=== PATIENT | female | born 1975 | race Caucasian/White ===

== ENCOUNTER → 2023-09-17 06:41 | Outpatient (REF) | payer BC, SELFPAY | LOC: PNTC 06:41 | PROVIDERS: ATTENDING PHYSICIAN Obstetrics & Gynecology | DX: O09.529 Supervision of elderly multigravida, unspecified trimester (principal); O09.819 Supervision of pregnancy resulting from assisted reproductive technology, unspecified trimester | CPT/HCPCS: 76816 ==

== ENCOUNTER → 2023-10-15 06:45 | Outpatient (REF) | payer BC, SELFPAY | LOC: PNTC 06:45 | PROVIDERS: ATTENDING PHYSICIAN Obstetrics & Gynecology | DX: O09.529 Supervision of elderly multigravida, unspecified trimester (principal); O09.819 Supervision of pregnancy resulting from assisted reproductive technology, unspecified trimester | CPT/HCPCS: 76816 ==

== ENCOUNTER → 2023-11-12 06:50 | Outpatient (REF) | payer BC, SELFPAY | LOC: PNTC 06:50 | PROVIDERS: ATTENDING PHYSICIAN Obstetrics & Gynecology | DX: O09.529 Supervision of elderly multigravida, unspecified trimester (principal); O09.819 Supervision of pregnancy resulting from assisted reproductive technology, unspecified trimester; O34.10 Maternal care for benign tumor of corpus uteri, unspecified trimester | CPT/HCPCS: 76816 ==

== ENCOUNTER → 2023-11-19 06:43 | Outpatient (REF) | payer BC, SELFPAY | LOC: PNTC 06:43 | PROVIDERS: ATTENDING PHYSICIAN Obstetrics & Gynecology | DX: O09.529 Supervision of elderly multigravida, unspecified trimester (principal); O09.819 Supervision of pregnancy resulting from assisted reproductive technology, unspecified trimester; O34.10 Maternal care for benign tumor of corpus uteri, unspecified trimester | CPT/HCPCS: 59025; 76815 ==

== ENCOUNTER → 2023-11-26 07:18 | Outpatient (REF) | payer BC, SELFPAY | LOC: PNTC 07:18 | PROVIDERS: ATTENDING PHYSICIAN Obstetrics & Gynecology | DX: O09.529 Supervision of elderly multigravida, unspecified trimester (principal); O09.819 Supervision of pregnancy resulting from assisted reproductive technology, unspecified trimester; O34.10 Maternal care for benign tumor of corpus uteri, unspecified trimester | CPT/HCPCS: 59025; 76815 ==

== ENCOUNTER 2023-11-30 09:00 | Observation (INO) | payer BC, SELFPAY ==
[2023-11-30 09:13] VITALS: BP 132/77; BMI 32.0
[2023-11-30 10:01] LABS: Hematocrit 35.3 % (37.0-47.0); Hemoglobin 12.2 g/dL (12.0-16.0); Mean Corp Hgb Conc. 34.6 g/dL (33.0-37.0); Mean Corpuscular Hgb 31.4 pg (27.0-31.0); Mean Platelet Volume 11.9 fL (7.4-10.4); Platelet Count 172 10^3/uL (130-400); Red Blood Cell Count 3.88 10^6/uL (4.20-5.40); Red Cell Dist. Width 13.3 % (11.5-14.5)
[2023-11-30 10:12] LABS: ALT (SGPT) 17 U/L (0-35); AST (SGOT) 23 U/L (14-36); Albumin 3.4 g/dl (3.5-5.0); Alkaline Phosphatase 226 U/L (38-126); Blood Urea Nitrogen 7 mg/dl (7-17); Calcium 9.3 mg/dl (8.4-10.2); Carbon Dioxide 19 mmol/L (22-30); Chloride 110 mmol/L (98-107); Estimated Creatinine Clearance > 125 ml/min; Glucose 95 mg/dl (70-99); Potassium 4.1 mmol/L (3.5-5.1); Sodium 133 mmol/L (135-145); Total Bilirubin 0.2 mg/dl (0.2-1.3); Total Protein 5.9 g/dl (6.3-8.2); eGFR > 60.00
[2023-11-30 10:18] LABS: Urine Albumin Negative (Neg - Trace); Urine Bilirubin Negative (Negative); Urine Character Slightly Cloudy (Clear); Urine Color Yellow; Urine Glucose Negative (Negative); Urine Ketone Negative (Negative); Urine Leukocyte 2+ (Negative); Urine Nitrite Negative (Negative); Urine Occult Blood Negative (Negative); Urine Urobilinogen Negative (Neg - 1+)
[2023-11-30 10:42] LABS: Protein/creatinine Ratio 0.6; Urine Protein 19 mg/dl
[2023-11-30 10:43] LABS: Urine Squamous Cell >30 /LPF (Few)
[2023-11-30 10:45] LABS: Urine Bacteria Many (Negative); Urine Red Blood Cell 0-2 /HPF (0-2); Urine White Cell 40-50 /HPF (0-5)
== END 2023-11-30 11:37 | disposition home or self-care (01) ==
LOC: LDRP 09:00
PROVIDERS: ADMITTING PHYSICIAN Obstetrics & Gynecology
DX: R80.0 Isolated proteinuria (principal); Z3A.35 35 weeks gestation of pregnancy; N97.9 Female infertility, unspecified; O34.13 Maternal care for benign tumor of corpus uteri, third trimester; D25.9 Leiomyoma of uterus, unspecified; R03.0 Elevated blood-pressure reading, without diagnosis of hypertension
CPT/HCPCS: 59025; 80053; 81003; 81015; 82570; 84156; 85027; G0378

== ENCOUNTER → 2023-12-03 07:47 | Outpatient (REF) | payer BC, SELFPAY | LOC: PNTC 07:47 | PROVIDERS: ATTENDING PHYSICIAN Obstetrics & Gynecology | DX: O09.529 Supervision of elderly multigravida, unspecified trimester (principal); O09.819 Supervision of pregnancy resulting from assisted reproductive technology, unspecified trimester | CPT/HCPCS: 59025; 76815 ==

== ENCOUNTER 2023-12-10 08:35 | Observation (INO) | payer BC, SELFPAY ==
[2023-12-10 08:42] VITALS: BP 145/75; BMI 32.0
[2023-12-10 09:03] LABS: % Basophils 0.3 % (0-2); % Eosinophils 0.5 % (0-6); % Immature Granulocytes 1.5 % (0-0.5); % Lymphocytes 14.7 % (20.5-51.1); % Monocytes 7.4 % (1.7-9.3); % Neutrophils 75.6 % (42.2-75.2); Absolute Eosinophils 0.1 10^3/uL (0-0.7); Absolute Immature Granulocytes 0.2 10^3/uL (0-0.05); Absolute Lymphocytes 1.5 10^3/uL (1.2-3.4); Absolute Monocytes 0.8 10^3/uL (0.1-0.6); Absolute Neutrophils 7.7 10^3/uL (1.4-6.5); Hematocrit 36.9 % (37.0-47.0); Hemoglobin 12.6 g/dL (12.0-16.0); Mean Corp Hgb Conc. 34.1 g/dL (33.0-37.0); Mean Corpuscular Hgb 31.3 pg (27.0-31.0); Mean Corpuscular Volume 91.6 fL (81.0-99.0); Mean Platelet Volume 11.8 fL (7.4-10.4); Nucleated Red Blood Cells % 0 %; Platelet Count 162 10^3/uL (130-400); Red Blood Cell Count 4.03 10^6/uL (4.20-5.40); Red Cell Dist. Width 13.2 % (11.5-14.5); White Blood Cell Count 10.2 10^3/uL (4.8-10.8)
[2023-12-10 09:11] LABS: ALT (SGPT) 20 U/L (0-35); AST (SGOT) 26 U/L (14-36); Albumin 3.3 g/dl (3.5-5.0); Alkaline Phosphatase 246 U/L (38-126); Blood Urea Nitrogen 11 mg/dl (7-17); Calcium 9.1 mg/dl (8.4-10.2); Carbon Dioxide 20 mmol/L (22-30); Chloride 110 mmol/L (98-107); Estimated Creatinine Clearance > 125 ml/min; Glucose 89 mg/dl (70-99); Potassium 4.2 mmol/L (3.5-5.1); Sodium 135 mmol/L (135-145); Total Bilirubin 0.2 mg/dl (0.2-1.3); Total Protein 5.9 g/dl (6.3-8.2); eGFR > 60.00
[2023-12-10 09:20] LABS: Protein/creatinine Ratio 0.6; Urine Protein 17 mg/dl
[2023-12-10 09:46] LABS: ALT (SGPT) 16 U/L (0-35); AST (SGOT) 26 U/L (14-36); Albumin 3.1 g/dl (3.5-5.0); Alkaline Phosphatase 235 U/L (38-126); Blood Urea Nitrogen 11 mg/dl (7-17); Calcium 9.2 mg/dl (8.4-10.2); Carbon Dioxide 18 mmol/L (22-30); Chloride 110 mmol/L (98-107); Estimated Creatinine Clearance > 125 ml/min; Glucose 81 mg/dl (70-99); Potassium 4.1 mmol/L (3.5-5.1); Sodium 135 mmol/L (135-145); Total Bilirubin 0.3 mg/dl (0.2-1.3); Total Protein 5.6 g/dl (6.3-8.2); eGFR > 60.00
[2023-12-10] MEDS: CELESTONE SOLUSPAN 2 MG IM (18:27)
[2023-12-11] MEDS: CELESTONE SOLUSPAN 2 MG IM (18:38)
== END 2023-12-11 18:47 | disposition home or self-care (01) ==
LOC: LDRP 08:35
PROVIDERS: ADMITTING PHYSICIAN Obstetrics & Gynecology
DX: O14.03 Mild to moderate pre-eclampsia, third trimester (principal); O09.813 Supervision of pregnancy resulting from assisted reproductive technology, third trimester; O09.513 Supervision of elderly primigravida, third trimester; Z3A.36 36 weeks gestation of pregnancy; N97.9 Female infertility, unspecified; G43.109 Migraine with aura, not intractable, without status migrainosus; Z88.5 Allergy status to narcotic agent; Z82.49 Family history of ischemic heart disease and other diseases of the circulatory system
CPT/HCPCS: 96372; J0702; 59025; 76816; 80053; 82570; 84156; 85025; 86850; 86900; 86901; 87070; G0378

== ENCOUNTER 2023-12-13 19:25 | Inpatient (IN) | payer BC, SELFPAY ==
[2023-12-13 19:32] VITALS: BMI 32.4
[2023-12-13 20:19] LABS: % Basophils 0.3 % (0-2); % Eosinophils 0.4 % (0-6); % Immature Granulocytes 3.1 % (0-0.5); % Monocytes 10.6 % (1.7-9.3); % Neutrophils 67.6 % (42.2-75.2); Absolute Eosinophils 0.1 10^3/uL (0-0.7); Absolute Immature Granulocytes 0.4 10^3/uL (0-0.05); Absolute Lymphocytes 2.1 10^3/uL (1.2-3.4); Absolute Monocytes 1.2 10^3/uL (0.1-0.6); Absolute Neutrophils 7.7 10^3/uL (1.4-6.5); Hematocrit 32.5 % (37.0-47.0); Hemoglobin 11.6 g/dL (12.0-16.0); Mean Corp Hgb Conc. 35.7 g/dL (33.0-37.0); Mean Corpuscular Hgb 31.4 pg (27.0-31.0); Mean Corpuscular Volume 87.8 fL (81.0-99.0); Mean Platelet Volume 11.8 fL (7.4-10.4); Nucleated Red Blood Cells % 0.2 %; Platelet Count 170 10^3/uL (130-400); Red Cell Dist. Width 13.3 % (11.5-14.5); White Blood Cell Count 11.4 10^3/uL (4.8-10.8)
[2023-12-13] MEDS: CYTOTEC 25 MICROGRAM VAG (21:53)
[2023-12-14] MEDS: CYTOTEC 50 MICROGRAM PO ×3 (02:00→14:12)
[2023-12-14] MEDS: LR IV (02:00)
[2023-12-14] MEDS: LR 1000 IV ×3 (02:17→23:42)
[2023-12-14] MEDS: CYTOTEC PO (09:58)
[2023-12-14] MEDS: FENTANYL/BUPIVACAINE 100 EPIDURAL ×2 (15:58→23:19)
[2023-12-14] MEDS: SUBLIMAZE 100 MCG EPIDURAL (15:58)
[2023-12-14] MEDS: PEPCID 40 MG PO (19:38)
[2023-12-14] MEDS: PITOCIN 30 UNITS/NSS 500 ML IV (19:51)
[2023-12-14] MEDS: ZOFRAN 4 MG IV (23:17)
[2023-12-15] MEDS: TYLENOL 650 MG PO ×4 (04:37→22:32)
[2023-12-15] MEDS: MOTRIN 600 MG PO ×4 (04:37→22:32)
[2023-12-15] MEDS: SENOKOT-S 1 TABLET PO (08:26)
[2023-12-15 11:08] LABS: Hematocrit 31.4 % (37.0-47.0); Hemoglobin 11.3 g/dL (12.0-16.0); Mean Corpuscular Hgb 31.7 pg (27.0-31.0); Platelet Count 170 10^3/uL (130-400); Red Blood Cell Count 3.57 10^6/uL (4.20-5.40); Red Cell Dist. Width 13.2 % (11.5-14.5); White Blood Cell Count 16.9 10^3/uL (4.8-10.8)
[2023-12-15] MEDS: CYTOTEC PO ×2 (11:13)
[2023-12-15 11:24] LABS: ALT (SGPT) 20 U/L (0-35); AST (SGOT) 40 U/L (14-36); Alkaline Phosphatase 201 U/L (38-126); Blood Urea Nitrogen 12 mg/dl (7-17); Calcium 9.1 mg/dl (8.4-10.2); Carbon Dioxide 18 mmol/L (22-30); Chloride 109 mmol/L (98-107); Estimated Creatinine Clearance 110 ml/min; Glucose 118 mg/dl (70-99); Potassium 3.9 mmol/L (3.5-5.1); Sodium 135 mmol/L (135-145); Total Bilirubin 0.6 mg/dl (0.2-1.3); Total Protein 5.4 g/dl (6.3-8.2); eGFR > 60.00
[2023-12-15] MEDS: PROCARDIA XL (EXTENDED RELEASE) 30 MG PO (16:40)
[2023-12-16] MEDS: MOTRIN 600 MG PO ×3 (05:14→19:58)
[2023-12-16] MEDS: TYLENOL 650 MG PO ×3 (05:14→19:58)
[2023-12-16] MEDS: PROCARDIA XL (EXTENDED RELEASE) 30 MG PO ×2 (08:33→20:33)
[2023-12-16] MEDS: SENOKOT-S 1 TABLET PO (08:34)
[2023-12-17] MEDS: SENOKOT-S 1 TABLET PO (07:59)
[2023-12-17] MEDS: PROCARDIA XL (EXTENDED RELEASE) 30 MG PO (08:00)
[2023-12-17] MEDS: MOTRIN 600 MG PO (08:07)
[2023-12-18 16:24] LABS: Syphilis/T. pallidum Ab Reflex Negative (Negative)
== END 2023-12-17 18:10 | disposition home or self-care (01) | DRG 807 ==
LOC: LDRP 19:25
PROVIDERS: Obstetrics & Gynecology; ADMITTING PHYSICIAN Obstetrics & Gynecology
PROC: 3E0P7VZ Introduction of Hormone into Female Reproductive, Via Natural or Artificial Opening (ICD-10-PCS; 2023-12-13)
PROC: 10D07Z6 Extraction of Products of Conception, Vacuum, Via Natural or Artificial Opening (ICD-10-PCS; 2023-12-15)
PROC: 0KQM0ZZ Repair Perineum Muscle, Open Approach (ICD-10-PCS; 2023-12-15)
PROC: 6A550ZT Pheresis of Cord Blood Stem Cells, Single (ICD-10-PCS; 2023-12-15)
DX: O14.04 Mild to moderate pre-eclampsia, complicating childbirth (principal); Z37.0 Single live birth; Z3A.36 36 weeks gestation of pregnancy; O70.1 Second degree perineal laceration during delivery; O77.0 Labor and delivery complicated by meconium in amniotic fluid; O69.81X0 Labor and delivery complicated by cord around neck, without compression, not applicable or unspecified; N97.9 Female infertility, unspecified; J45.909 Unspecified asthma, uncomplicated; Z80.3 Family history of malignant neoplasm of breast; Z82.49 Family history of ischemic heart disease and other diseases of the circulatory system; Z83.49 Family history of other endocrine, nutritional and metabolic diseases; Z88.5 Allergy status to narcotic agent; Z91.018 Allergy to other foods
CPT/HCPCS: 88307; 80053; 85025; 85027; 86780; 86850; 86900; 86901; 93005

== ENCOUNTER → 2024-10-10 08:20 | Outpatient (REF) | payer BC, SELFPAY | LOC: WDC 08:20 | PROVIDERS: ATTENDING PHYSICIAN Obstetrics & Gynecology | DX: Z12.31 Encounter for screening mammogram for malignant neoplasm of breast (principal) | CPT/HCPCS: 77063; 77067 ==